=== PATIENT | male | born 1980 ===

== ENCOUNTER 2018-02-21 20:53 | Emergency (ER) | payer SELFPAY ==
[2018-02-21 21:06] VITALS: BP 172/105
== END 2018-02-21 21:15 | disposition left against medical advice (07) ==
LOC: ED 20:53
DX: Z53.21 Procedure and treatment not carried out due to patient leaving prior to being seen by health care provider (principal)

== ENCOUNTER 2018-02-22 20:11 | Emergency (ER) | payer SELFPAY ==
[2018-02-22 20:39] VITALS: BP 212/97
== END 2018-02-22 20:16 | disposition left against medical advice (07) ==
LOC: ED 20:11
DX: Z53.21 Procedure and treatment not carried out due to patient leaving prior to being seen by health care provider (principal)